=== PATIENT | female | born 1940 | race Caucasian/White ===

== ENCOUNTER 2016-07-09 05:43 | Day surgery (SDC) | payer MEDICARE ==
[~2016-07-09] VITALS: Ht 165.1 cm; Wt 69.7 kg
[2016-07-09] VITALS (10 sets, daily range): BP systolic 145–169; BP diastolic 66–94; PULSE 46–78; RESP 13–21; O2SAT 94–98
[~2016-07-09 05:43] MED LIST: CLOB15CR3 TOP; Lactated Ringer's 1,000 ML IV SCH
[2016-07-09] MEDS ORDERED: fentaNYL-PF 50 mCg/mL 2 mL Inj ONE (05:44)
--- NOTE | 2016-07-09 06:49 | PCM.HPANE ---
Patient Data Surgeon Admitting Provider: Attending Provider:Laura Smith MD Primary Care Physician:Lien Romero MD Other Provider:[facility] Reason for Visit Second Endometrium Ht/WT & BMI Height (Feet): 5 Height (Inches): 5 Weight (Kilograms): 69.7 Body Mass Index 25.00 Allergies Coded Allergies: Penicillins (Verified Allergy, Unknown, rash, 07/07/16) latex (Verified Allergy, Unknown, rash, 07/07/16) Uncoded Allergies: PAIN MEDICATIONS (Allergy, Unknown, nausea, feeling faint, 07/07/16) Past Anesthesia History Anesthesia History: Positive for:: Abnormal Airway (hx of tracheotomy 1943 ( choked on food)), Denies:: Anesthesia Reactions, Fam Anesthesia Reaction Diabetes History Hx Diabetes?: No MRSA MRSA: No Medications Hypertension Medication: No Home Meds Incl Beta Jeronimo: No Discontinued Reported Medications Clobetasol Propionate/Emoll (Clobetasol Emollient 0.05% Crm)15 Gm Cream..g.1 Appl TOP BID #1 TUBE 07/07/16 History History of ENT Problems?: Yes HEENT History: Positive for:: Abnormal Airway (hx of tracheotomy 1943 (choked on food)) Hearing Problem TMJ (grinds, no nightguard) Denies:: Cataracts Glaucoma Denture Type: Full- Upper Hx of Heart Problems?: No Cardiovascular History: Denies:: AICD Abdominal Aortic Aneurism Atrial Fibrillation Cardiac Surgery Edema Heart Murmur Hypertension Irregular Heartbeat Pacemaker Hx of Respiratory Problem?: No Respiratory History: Denies:: Asthma COPD Dyspnea Emphysema Oxygen Administration Pneumonia Tuberculosis Use of C-PAP Machine Use of Inhalers / NEBS Hx Neurologic Problems?: No Neurological History: Denies:: CVA Dementia Dizziness Headaches Multiple Sclerosis Parkinson's Disease Seizures TIA Hx of GI Problems?: No Gastrointestinal History: Denies:: Cirrhosis Gall Bladder Disease Gastroesphageal Reflux Gastrointestinal Bleeding Heartburn Hepatitis Hiatal Hernia Liver Disease Rectal Bleeding Hx of Problems?: No Genitourinary History: Denies:: Kidney Stones Urinary Tract Infection Female Hx: Denies:: Currently (POST MENOPAUSAL) Problems with Breasts? Skin History: Positive for:: History Skin Disorders? (psoriasis) Hx Musculoskeletal Problems?: Yes Musculoskeletal History: Positive for:: Osteoarthritis (psoriatric arthritis) Denies:: Back Injury Degenerative Joint Fibromyalgia Joint Replacement Musculoskeletal Trauma Myasthenia Gravis Rheumatoid Arthritis Systemic Lupus Hx of Psycho/Social Problems?: No Psycho Social History: Denies:: Anxiety Hx Depression Hx Surgeries?: Yes (tracheotomy, D+C) Hx Any Other Health Problems?: Yes Other History: Denies:: Cancer Thyroid Disease History Blood Transfusions: Positive for:: Accept Blood Products? Denies:: Blood Transfusions Hx Diabetes: No Hx Alcohol Use: YesAlcoholic Drinks Per Day: 3-4 drinks weeklyHx Substance Use : NoHave You Smoked inLast 12 mo: Yes Stop/Bang P-Blood Pressure: treated: No B- Body Mass Index > 35 kg/m2: No A- Age over 50: Yes N- Neck Large Circumference: No G- Gender Male: No Risk Assessment Category Category 1A: Patient has history of documented sleep apnea, and HAS NOT received any narcotic, sedative or anesthesia administration during this stay. Category 1B: Patient has history of documented sleep apnea, and HAS received any narcotic , sedative or anesthesia administration during this stay Category 2: Patient has SUSPECTED Obstructive Sleep Apnea, and HAS received any narcotic , sedative or anesthesia administration during this stay. Category 3: Patient has SUSPECTED Obstructive Sleep Apnea and HAS NOT received narcotic, sedative or anesthesia administration during this stay. Category 4: Outpatient in Procedural Areas with known sleep apnea or who screen positive for High Risk via the STOP/BANG questionnaire. Exam Exam Vital Signs Vital Signs Date Time Temp Pulse Resp B/P Pulse Ox O2 Delivery O2 Flow Rate FiO2 07/09/16 06:12 36 58 14 147/69 95 Room Air General Appearance: Alert, Oriented X3, Cooperative HEENT/AIRWAY: MP 2, Neck Movement (from), Mouth Opening (wnl) Lungs: Clear to Auscultation Heart: Exam Unremarkable Plan Impression Patient chart reviewed, patient interviewed and anesthestic plan with risks, benefits, and alternatives discussed, and informed consent obtained. NPO Status: [id number] 07/08/16 ASA Physical Status: ASA2 Mod Systemic Disease Anesthetic Plan: GA Bene/Risks/Altern/Consents: Yes HP Complete Prior to Induction: Yes Tc Ureña MD Jul 09, 2016 06:49
[2016-07-09] MEDS ORDERED: Lactated Ringer's 1,000 ML IV ONE (06:55)
[2016-07-09] MEDS ORDERED: Acetaminophen IV 1,000 MG in IV Premix 1 EACH IV ONE (07:10)
[2016-07-09 07:14] LABS: BASOPHILS % (AUTO) 0.5 % (0-3); EOSINOPHILS % (AUTO) 4.2 % (0-5); MONOCYTES % (AUTO) 13.4 % (4-12); Mean Corpuscular Hemoglobin 30.7 pg (27.0-35.0); Mean Corpuscular Volume 91.7 fL (81-100); NEUTROPHILS % (AUTO) 45.4 % (40-74); Platelet Count 194 bil/L (150-400)
[2016-07-09] MEDS ORDERED: Lactated Ringer's 500 ML IV PRN (09:33)
[2016-07-09] MEDS ORDERED: Lactated Ringer's 1,000 ML IV SCH (09:33)
[2016-07-09] MEDS ORDERED: Labetalol 5 mg/mL 4 mL Inj IV PRN (09:35)
[2016-07-09] MEDS ORDERED: HYDROmorphone 1 mg/mL Inj IVPUSH PRN (09:35)
[2016-07-09] MEDS ORDERED: hydrALAZINE 20 mg/mL Inj IVPUSH PRN (09:35)
[2016-07-09] MEDS ORDERED: Atropine 0.4 mg/mL Inj IVPUSH PRN (09:35)
[2016-07-09] MEDS ORDERED: Dexamethasone 4 mg/mL Inj IVPUSH PRN (09:35)
[2016-07-09] MEDS ORDERED: Ondansetron 2 mg/mL 2 mL Inj IVPUSH PRN ×2 (09:35→10:35)
[2016-07-09] MEDS ORDERED: Phenylephrine 10,000 mCg/mL Inj IVPUSH PRN (09:35)
[2016-07-09] MEDS ORDERED: fentaNYL-PF 50 mCg/mL 2 mL Inj IVPUSH PRN (09:35)
[2016-07-09] MEDS ORDERED: EPHEDrine Sulfate 50 mg/mL Inj IVPUSH PRN (09:35)
[2016-07-09] MEDS ORDERED: oxyCODONE-Acetamin 5-325 mg Tablet PO PRN (10:35)
[2016-07-09] MEDS ORDERED: MetoCLOpramide 5 mg/mL 2 mL Inj IVPUSH PRN (10:35)
--- NOTE | 2016-07-09 10:40 | PCM.DIGYN ---
Surgical Discharge Instruction Dates of Hospitalization Date of Hospital Admission Providers Admitting Physician: Primary Care Physician: Lien Romero MD Attending Physician: Laura Smith MD Diagnosis at Time of Discharge Diagnosis at time of discharge thickened endometrium uterine polyp Post-operative diagnosis thickened endometrium uterine polyp Problems: Diet Discharge Diet: No restrictions Activity Discharge Activity-General: Try not to overdue, Balance rest and activity Dressing and Incisional Care Hygiene: May shower, NO bathtub, hot tub or whirlpool Additional Instructions Discharge Instructions Please call office or go to ER if heavy vaginal bleeding, severe abdominal pain , foul smelling discharge, fever more than 100.4 Follow Up Plan Follow Up Plan 2 weeks after surgery Follow-up Provider (F9): Laura Smith MD Follow-up appointment: Weeks (2) Call your provider for: Fever, Chills, Shortness of breath, Vomitting, Heavy vaginal bleeding, Increasing pain Laura Smith MD Jul 09, 2016 10:40
--- NOTE | 2016-07-09 10:46 | PCM.ANEP1 ---
Post Anesthesia Phase 1 PACU Phase 1 Assessment Vital Signs Vital Signs Date Time Temp Pulse Resp B/P Pulse Ox O2 Delivery O2 Flow Rate FiO2 07/09/16 10:40 36.3 78 19 145/94 98 Room Air 07/09/16 10:37 78 21 169/84 98 Simple Mask 8 07/09/16 06:12 36 58 14 147/69 95 Room Air Anesthetic Administered: GA Level of Alertness: Awake, talking [place]'s with Equal Strength: Yes Pain: No Nausea or Vomiting: No Oxygen Delivery: Room Air Lungs: Normal Air Movement Tc Ureña MD Jul 09, 2016 10:46
--- NOTE | 2016-07-09 11:12 | OP ---
[address] [address] OPERATIVE REPORT PATIENT: ERICK BAIRD : 1940 MR#: [id number] ADMIT: 07/09/2016 JOB ID: [id number] DATE OF SURGERY: 07/09/2016 SURGEON: Laura Smith MD PREOPERATIVE DIAGNOSIS(ES): Thickened endometrium at the postmenopausal status. POSTOPERATIVE DIAGNOSIS(ES): Thickened endometrium at the postmenopausal status. There was also noticed to have endometrium polyp. INDICATIONS: This is a 75-year-old female. She is post menopause. She presented to our office for thickened endometrium without vaginal bleeding. Office endometrium biopsy was tried but failed. Decision was made for a hysteroscopy, D and C. Informed consent signed after discussion of the indication, benefits, risks, alternatives of the procedure. The patient understood there is risk of infection, bleeding, injury to the organs around the uterus, perforation of the uterus. PROCEDURE: The patient was transferred to the operating room. After anesthesia was noted to be adequate, she was placed in dorsal lithotomy position. She was prepared and draped in a normal sterile fashion. A speculum inserted. The urine was drained before the procedure and noticed to be about 200 cc. A speculum inserted to vagina to expose the cervix. The cervix was grasped by single-tooth tenaculum. The cervix was gently dilated to 8-Jamaican, and at this time, the hysteroscopy scope was inserted to the uterine cavity without difficulty and there was a polyp noticed about 1 cm in size. This polyp was removed by MyoSure instrument without difficulty. Surveillance curettage was also performed. The scope was reinserted to examine. Noticed the polyp was completely removed. All instruments are removed from vagina. Hemostasis confirmed. The blood loss during the procedure was about 10 cc. There was no significant fluid deficit for the hysteroscopy. The patient tolerated the procedure well and transferred to recovery room in a stable condition. All specimens were sent for Pathology. KHUSHI
--- NOTE | 2016-07-09 11:26 | DIS ---
[address] [address] DISCHARGE SUMMARY PATIENT: ERICK BAIRD : 1940 MR#: [id number] ADMIT: 07/09/2016 JOB ID: [id number] DIS: 07/09/2016 This is a 75-year-old female, postmenopausal with thickened endometrium and she comes in today for a hysteroscopy, D and C. The procedure was not complicated. The patient tolerated the procedure well. She will be discharged home today. Instructions given that if there is heavy vaginal bleeding, severe abdominal pain, foul-smelling discharge, fever 100.4, she needs to call office or go to the ED for evaluation. She is instructed to followup in office two weeks after the procedure. She could be discharged when she could get up to walk, can void and the pain is well controlled. I will prescribe her ibuprofen 600 mg q.6 hours p.r.n. for pain with 30 pills, no refills.
--- NOTE | 2016-07-09 11:42 | PCM.ANEP2 ---
Post Anesthesia Evaluation ASA/CMS Post Anesthesia VS in Patient's Normal Range?: Yes Resp Stable; Airway Patent?: Yes CV Function & Hydration Stable: Yes Mental Status Recovered?: Yes Pain control Satisfactory?: Yes N/V Control Satisfactory?: Yes Tc Ureña MD Jul 09, 2016 11:42
--- NOTE | 2016-07-12 16:28 | PATH ---
SURGICAL PATHOLOGY Attending Physician:Laura Smith MD CASE STATUS: Signed Out PATIENT NAME: ERICK BAIRD PID: [id number] : 1940 DATE COLLECTED:07/09/2016 15:07 SPECIMEN: Endocervix, Curettage CLINICAL HISTORY: Second Endometrium Thickened Endometrium Post Menopausal State Endometrium Polyp 1). ENDOMETRIAL CURETTINGS FINAL DIAGNOSIS: 1.ENDOMETRIAL CURETTING: ENDOMETRIAL POLYP. Negative for hyperplasia, atypia and neoplasia. ICD10 code N84.0 GROSS DESCRIPTION: The specimen is received in one formalin filled container labeled with the patient's name, sublabeled "endometrial curettings" and consists of multiple portions of tissue which aggregate to 1.5 x 0.5 x 0.2 CM. The specimen is filtered and entirely submitted in one cassette. 07/09/2016 [facility] MICRO DESCRIPTION: See diagnosis. ICD-9 CODES: CPT CODES: 1: 84193 Electronically Signed Out Julieth Ordaz MD [facility] [address], [place] [address] Technical component performed at [facility], [facility] [address], [place], [address]
== END 2016-07-09 23:59 | disposition home or self-care (01) ==
LOC: SAS 05:43
PROVIDERS: ATTEND Obstetrics & Gynecology
DX: N84.0 Polyp of corpus uteri (principal); R93.8 Abnormal findings on diagnostic imaging of other specified body structures; F17.210 Nicotine dependence, cigarettes, uncomplicated; L40.50 Arthropathic psoriasis, unspecified; Z78.0 Asymptomatic menopausal state
CPT/HCPCS: 36415; 58558; 85025; J2250; J3010; J7120